=== PATIENT | male | born 1930 | race African-American/Black ===

== ENCOUNTER 2017-06-03 00:01 | Inpatient (IN) | payer MEDICARE, OTHER ==
[~2017-06-03] VITALS: Ht 165.1 cm; Wt 73.0 kg
[2017-06-03] VITALS (7 sets, daily range): BP systolic 119–140; BP diastolic 57–73
[~2017-06-03 00:01] MED LIST: ATOR40TA70 PO; CALC667C4 PO; CLOP75TA2 PO; FEBU40TA PO; FERR-63 PO; TERA5CAP4 PO
[2017-06-03] MEDS ORDERED: ASPIRIN 81MG TABLET PO ONE (00:30)
[2017-06-03] MEDS: NITROGLYCERIN 0.4MG TABLET SL SL PRN ×2 (00:46→00:52)
[2017-06-03 00:47] LABS: INR 1.1; PROTHROMBIN TIME 11.5 sec
[2017-06-03 00:53] LABS: CARBON DIOXIDE 30 mEq/L (21-32); CHLORIDE 102 mEq/L (98-107); TROPONIN I 0.34 ng/mL (0.00-0.04)
[2017-06-03 00:55] LABS: BASOPHILS % 0.6 % (0.0-2.0); EOSINOPHILS % 0.9 % (0.0-5.0); HEMATOCRIT. 30.8 % (42.0-52.0); HEMOGLOBIN. 10.4 g/dL (14.0-18.0); LYMPHOCYTES % 22.9 % (20.0-50.0); MEAN CORPUSCULAR HEMOGLOBIN 32.7 pg (28.0-32.0); MEAN CORPUSCULAR VOLUME 97.2 fL (80.0-94.0); MEAN PLATELET VOLUME 9.9 fl (7.4-10.4); MONOCYTES % 10.9 % (2.0-8.0); NEUTROPHILS % 64.7 % (40.0-76.0); PLATELET 134 x1000/uL (130-400); RED BLOOD CELL COUNT 3.17 mill/uL (4.7-6.1); RED CELL DISTRIBUTION WIDTH 15.5 % (11.6-14.6)
[2017-06-03] MEDS ORDERED: MORPHINE SULFATE 4 MG/ML CPJ (NOT FOR IM USE) IV ONE (02:15)
[2017-06-03] MEDS ORDERED: ACETAMINOPHEN 325MG TABLET PO PRN (09:45)
[2017-06-03] MEDS ORDERED: HYDROCODONE/ACETAMINOPHEN 5/325MG TABLET PO PRN (09:45)
[2017-06-03] MEDS ORDERED: DIPHENHYDRAMINE 50MG/ML VIAL IV PRN (09:45)
[2017-06-03] MEDS ORDERED: ACETAMINOPHEN 650MG SUPP PR PRN (09:45)
[2017-06-03] MEDS ORDERED: GUAIFENESIN 200MG/10ML SUGAR FREE UDC PO PRN (09:45)
[2017-06-03] MEDS ORDERED: DOCUSATE SODIUM 100MG CAPSULE PO PRN (09:45)
[2017-06-03] MEDS ORDERED: NA PHOS,M-B/NA PHOS,DI-BA ENEMA 118ML PR PRN (09:45)
[2017-06-03] MEDS ORDERED: IPRATROPIUM/ALBUTEROL 0.5-3(2.5)MG/3ML NEB INH PRN (09:45)
[2017-06-03] MEDS ORDERED: ACETAMINOPHEN 650MG/20.3ML UDC GT PRN (09:45)
[2017-06-03] MEDS ORDERED: CLONIDINE 0.1MG TABLET PO PRN (09:45)
[2017-06-03] MEDS ORDERED: MAGNESIUM/ALUMINUM HYDROXIDE/SIMETHICONE 30ML UDC PO PRN (09:45)
[2017-06-03] MEDS ORDERED: ONDANSETRON HCL 4MG/2ML VIAL IV PRN (09:45)
[2017-06-03 10:26] LABS: BASOPHILS % 0.5 % (0.0-2.0); EOSINOPHILS % 1.5 % (0.0-5.0); HEMATOCRIT. 30.5 % (42.0-52.0); HEMOGLOBIN. 10.3 g/dL (14.0-18.0); LYMPHOCYTES % 26.5 % (20.0-50.0); MEAN CORPUSCULAR VOLUME 97.5 fL (80.0-94.0); MEAN PLATELET VOLUME 9.6 fl (7.4-10.4); MONOCYTES % 11.9 % (2.0-8.0); NEUTROPHILS % 59.6 % (40.0-76.0); PLATELET 130 x1000/uL (130-400); RED BLOOD CELL COUNT 3.13 mill/uL (4.7-6.1); RED CELL DISTRIBUTION WIDTH 15.2 % (11.6-14.6)
[2017-06-03 10:42] LABS: CARBON DIOXIDE 29 mEq/L (21-32); CHLORIDE 103 mEq/L (98-107)
[2017-06-03 10:46] LABS: HDL CHOLESTEROL 52 mg/dL (40-59); LDL CHOLESTEROL 96 mg/dL (5-100)
[2017-06-03] MEDS ORDERED: ATORVASTATIN CALCIUM 40MG TABLET PO SCH (12:00)
[2017-06-03] MEDS: ASPIRIN 325MG EC TABLET PO SCH (12:11)
[2017-06-03] MEDS ORDERED: HEPARIN 25,000 UNITS PREMIX 500 ML IV SCH (12:30)
[2017-06-03] MEDS: CLOPIDOGREL 75MG TABLET PO SCH (12:30)
[2017-06-03] MEDS ORDERED: HEPARIN 5000 UNITS/ML VIAL IV ONE (12:30)
[2017-06-03] MEDS: CALCIUM ACETATE 667MG CAPSULE PO SCH ×2 (12:36→17:01)
[2017-06-03] MEDS ORDERED: CINA30 PO (13:04)
[2017-06-03] MEDS: NITROGLYCERIN OINT 1GM/INCH UDPKT TD SCH ×3 (14:49→20:07)
[2017-06-03] MEDS: SODIUM CHLORIDE 0.9% INJ 3ML FLUSH IVF SCH ×2 (14:49→21:20)
[2017-06-03 15:57] LABS: *AMPHETAMINES SCREEN URINE NEGATIVE (NEGATIVE); *BARBITURATES SCREEN URINE NEGATIVE (NEGATIVE); *BENZODIAZEPINES SCREEN URINE NEGATIVE (NEGATIVE); *COCAINE SCREEN URINE NEGATIVE (NEGATIVE); CANNABINOID URINE SCREEN NEGATIVE (NEGATIVE); METHADONE URINE SCREEN NEGATIVE (NEGATIVE); OPIATES URINE SCREEN PRESUMTIVE POSITIVE (NEGATIVE); PHENCYCLIDINE URINE SCREEN NEGATIVE (NEGATIVE)
[2017-06-03] MEDS ORDERED: HEPARIN BOLUS PRN aPTT 30-44 IV (16:00)
[2017-06-03] MEDS ORDERED: HEPARIN 60 UNITS/KG BOLUS IV NR (16:00)
[2017-06-03] MEDS ORDERED: HEPARIN BOLUS PRN aPTT <30 IV (16:00)
[2017-06-03 16:35] LABS: TROPONIN I 4.7 ng/mL (0.00-0.04)
[2017-06-03] MEDS: HEPARIN 25,000 UNITS PREMIX 500 ML IV SCH (16:45)
[2017-06-03] MEDS: TERAZOSIN HCL 5MG CAPSULE PO SCH (20:07)
[2017-06-03] MEDS: ATORVASTATIN CALCIUM 40MG TABLET PO SCH (20:07)
[2017-06-03] MEDS: METOPROLOL TARTRATE 25MG TABLET PO SCH (20:07)
[2017-06-04] VITALS (13 sets, daily range): BP systolic 98–166; BP diastolic 52–93
[2017-06-04] MEDS: NITROGLYCERIN OINT 1GM/INCH UDPKT TD SCH ×6 (00:23→20:53)
[2017-06-04] MEDS: HEPARIN 25,000 UNITS PREMIX 500 ML IV SCH (03:41)
[2017-06-04] MEDS: SODIUM CHLORIDE 0.9% INJ 3ML FLUSH IVF SCH ×3 (05:59→21:32)
[2017-06-04 06:45] LABS: BASOPHILS % 0.4 % (0.0-2.0); EOSINOPHILS % 1.5 % (0.0-5.0); HEMOGLOBIN. 9.8 g/dL (14.0-18.0); LYMPHOCYTES % 18.6 % (20.0-50.0); MEAN CORPUSCULAR VOLUME 97.1 fL (80.0-94.0); MEAN PLATELET VOLUME 10.1 fl (7.4-10.4); NEUTROPHILS % 66.5 % (40.0-76.0); PLATELET 123 x1000/uL (130-400); RED BLOOD CELL COUNT 2.98 mill/uL (4.7-6.1); RED CELL DISTRIBUTION WIDTH 15.2 % (11.6-14.6)
[2017-06-04 07:13] LABS: CARBON DIOXIDE 26 mEq/L (21-32); CHLORIDE 101 mEq/L (98-107); HDL CHOLESTEROL 50 mg/dL (40-59); LDL CHOLESTEROL 88 mg/dL (5-100)
[2017-06-04] MEDS: CALCIUM ACETATE 667MG CAPSULE PO SCH ×3 (07:20→16:37)
[2017-06-04] MEDS: METOPROLOL TARTRATE 25MG TABLET PO SCH ×2 (08:57→21:00)
[2017-06-04] MEDS: ASPIRIN 325MG EC TABLET PO SCH (09:16)
[2017-06-04] MEDS: CLOPIDOGREL 75MG TABLET PO SCH (09:16)
[2017-06-04 10:05] LABS: CREATINE KINASE MB FRACTION 18.2 ng/mL (0.5-3.6)
[2017-06-04] MEDS ORDERED: MIDAZOLAM HCL 2 MG/2 ML VIAL ONE (12:12)
[2017-06-04] MEDS ORDERED: FENTANYL CITRATE/PF 50MCG/ML 2ML VIAL ONE (12:12)
[2017-06-04] MEDS ORDERED: IODIXANOL 320MG/ML 100 ML BOTTLE IV ONE (12:13)
[2017-06-04] MEDS ORDERED: LIDOCAINE HCL 1% 20ML VIAL (Pyxis) INJ ONE (12:13)
[2017-06-04] MEDS ORDERED: HEPARIN SODIUM 1,000 UNIT/1ML VIAL IV ONE ×2 (13:06→13:23)
[2017-06-04] MEDS ORDERED: NITROGLYCERIN 50MCG/ML 10ML VIAL (CATH LAB) IV ONE (13:55)
[2017-06-04] MEDS ORDERED: NICARDIPINE 100MCG/ML 10ML VIAL (CATH LAB) IV ONE (13:55)
[2017-06-04] MEDS ORDERED: ENOXAPARIN 80MG/0.8ML SYR SUBCUT NR (18:00)
[2017-06-04] MEDS: ATORVASTATIN CALCIUM 40MG TABLET PO SCH (20:51)
[2017-06-04] MEDS: TERAZOSIN HCL 5MG CAPSULE PO SCH (20:52)
[2017-06-04] MEDS ORDERED: EPOETIN ALFA 10000UNITS/ML VIAL SUBCUT SCH (21:00)
[2017-06-05] VITALS (16 sets, daily range): BP systolic 117–172; BP diastolic 31–79
[2017-06-05] MEDS: NITROGLYCERIN OINT 1GM/INCH UDPKT TD SCH ×6 (00:42→20:57)
[2017-06-05] MEDS: SODIUM CHLORIDE 0.9% INJ 3ML FLUSH IVF SCH ×3 (05:07→22:00)
[2017-06-05 06:32] LABS: BASOPHILS % 0.5 % (0.0-2.0); EOSINOPHILS % 1.8 % (0.0-5.0); HEMATOCRIT. 27.2 % (42.0-52.0); HEMOGLOBIN. 9.3 g/dL (14.0-18.0); LYMPHOCYTES % 24.4 % (20.0-50.0); MEAN CORPUSCULAR HEMOGLOBIN 32.9 pg (28.0-32.0); MEAN CORPUSCULAR VOLUME 96.3 fL (80.0-94.0); MEAN PLATELET VOLUME 9.9 fl (7.4-10.4); MONOCYTES % 13.8 % (2.0-8.0); NEUTROPHILS % 59.5 % (40.0-76.0); PLATELET 120 x1000/uL (130-400); RED BLOOD CELL COUNT 2.82 mill/uL (4.7-6.1); RED CELL DISTRIBUTION WIDTH 14.8 % (11.6-14.6)
[2017-06-05 06:43] LABS: CARBON DIOXIDE 29 mEq/L (21-32); CHLORIDE 100 mEq/L (98-107); CREATINE KINASE 266 IU/L (39-308); CREATINE KINASE MB FRACTION 6.7 ng/mL (0.5-3.6)
[2017-06-05] MEDS ORDERED: ASPIRIN/SOD BICARB/CITRIC ACID 324MG TAB EFF ONE (07:15)
[2017-06-05] MEDS: CALCIUM ACETATE 667MG CAPSULE PO SCH ×2 (07:20→18:04)
[2017-06-05] MEDS ORDERED: FENTANYL CITRATE/PF 50MCG/ML 2ML VIAL ONE (07:23)
[2017-06-05] MEDS ORDERED: LIDOCAINE HCL 1% 20ML VIAL (Pyxis) INJ ONE (07:23)
[2017-06-05] MEDS ORDERED: MIDAZOLAM HCL 2 MG/2 ML VIAL ONE (07:23)
[2017-06-05] MEDS ORDERED: IOVERSOL 240MG/ML 100ML BOTTLE IV ONE (07:24)
[2017-06-05] MEDS ORDERED: IODIXANOL 320MG/ML 100 ML BOTTLE IV ONE ×2 (07:24→08:54)
[2017-06-05] MEDS ORDERED: IODIXANOL 320MG/ML 200ML BOTTLE ONE (07:25)
[2017-06-05] MEDS ORDERED: HEPARIN SODIUM 1,000 UNIT/1ML VIAL IV ONE (08:02)
[2017-06-05] MEDS ORDERED: CLOPIDOGREL 75MG TABLET ONE (08:44)
[2017-06-05] MEDS ORDERED: ATROPINE SULFATE 0.1MG/ML 10ML DISP.SYRIN ONE (09:00)
[2017-06-05] MEDS ORDERED: ACETAMINOPHEN 325MG TABLET PO PRN (09:45)
[2017-06-05] MEDS ORDERED: ATROPINE SULFATE 1MG/10ML SYR IV PRN (09:45)
[2017-06-05] MEDS ORDERED: CLOPIDOGREL 75MG TABLET PO SCH (09:45)
[2017-06-05] MEDS: ASPIRIN 325MG EC TABLET PO SCH (10:04)
[2017-06-05] MEDS: METOPROLOL TARTRATE 25MG TABLET PO SCH ×2 (11:14→21:41)
[2017-06-05] MEDS: ATORVASTATIN CALCIUM 40MG TABLET PO SCH (21:42)
[2017-06-05] MEDS: TERAZOSIN HCL 5MG CAPSULE PO SCH (21:42)
[2017-06-06] VITALS (7 sets, daily range): BP systolic 129–145; BP diastolic 52–66
[2017-06-06] MEDS: NITROGLYCERIN OINT 1GM/INCH UDPKT TD SCH ×3 (03:47→09:07)
[2017-06-06] MEDS: SODIUM CHLORIDE 0.9% INJ 3ML FLUSH IVF SCH (05:06)
[2017-06-06 06:54] LABS: HEMATOCRIT. 27.8 % (42.0-52.0); HEMOGLOBIN. 9.5 g/dL (14.0-18.0); MEAN CORPUSCULAR HEMOGLOBIN 32.9 pg (28.0-32.0); MEAN CORPUSCULAR VOLUME 96.9 fL (80.0-94.0); MEAN PLATELET VOLUME 10.2 fl (7.4-10.4); PLATELET 122 x1000/uL (130-400); RED BLOOD CELL COUNT 2.87 mill/uL (4.7-6.1); RED CELL DISTRIBUTION WIDTH 14.7 % (11.6-14.6)
[2017-06-06] MEDS ORDERED: ASPI-867 PO (07:41)
[2017-06-06 08:47] LABS: PLATELET ESTIMATE SLIGHTLY DECREASED
[2017-06-06] MEDS ORDERED: CLOPIDOGREL 75MG TABLET PO SCH (09:00)
[2017-06-06] MEDS: CALCIUM ACETATE 667MG CAPSULE PO SCH (09:06)
[2017-06-06] MEDS: ASPIRIN 325MG EC TABLET PO SCH (09:06)
[2017-06-06] MEDS: METOPROLOL TARTRATE 25MG TABLET PO SCH (09:07)
== END 2017-06-06 12:00 | disposition home or self-care (01) | DRG 246 ==
LOC: ER 00:01 → 3WST 02:10 → EDBEDREQTM 04:02 → EDBEDREQSVC 10:58 → EDBEDREQ 11:02 → ENRESERV 11:09
PROVIDERS: ADMIT Family Medicine; ATTEND Family Medicine
PROC: 5A1D60Z (ICD-10-PCS; 2017-06-04)
PROC: B31H1ZZ Fluoroscopy of Right Upper Extremity Arteries using Low Osmolar Contrast (ICD-10-PCS; 2017-06-04)
PROC: B2111ZZ Fluoroscopy of Multiple Coronary Arteries using Low Osmolar Contrast (ICD-10-PCS; 2017-06-04)
PROC: B2151ZZ Fluoroscopy of Left Heart using Low Osmolar Contrast (ICD-10-PCS; 2017-06-04)
PROC: 027034Z Dilation of Coronary Artery, One Artery with Drug-eluting Intraluminal Device, Percutaneous Approach (ICD-10-PCS; principal; 2017-06-05)
PROC: B41F1ZZ Fluoroscopy of Right Lower Extremity Arteries using Low Osmolar Contrast (ICD-10-PCS; 2017-06-05)
DX: T82.855A Stenosis of coronary artery stent, initial encounter (principal); I21.4 Non-ST elevation (NSTEMI) myocardial infarction; N18.6 End stage renal disease; I47.1 Supraventricular tachycardia; I12.0 Hypertensive chronic kidney disease with stage 5 chronic kidney disease or end stage renal disease; I25.10 Atherosclerotic heart disease of native coronary artery without angina pectoris; D50.9 Iron deficiency anemia, unspecified; E11.22 Type 2 diabetes mellitus with diabetic chronic kidney disease; E78.00 Pure hypercholesterolemia, unspecified; E78.5 Hyperlipidemia, unspecified; Y83.9 Surgical procedure, unspecified as the cause of abnormal reaction of the patient, or of later complication, without mention of misadventure at the time of the procedure; Z96.649 Presence of unspecified artificial hip joint; I44.0 Atrioventricular block, first degree; I51.7 Cardiomegaly; N40.0 Benign prostatic hyperplasia without lower urinary tract symptoms; Z86.73 Personal history of transient ischemic attack (TIA), and cerebral infarction without residual deficits; Y92.89 Other specified places as the place of occurrence of the external cause; Z87.891 Personal history of nicotine dependence; Z88.0 Allergy status to penicillin; Z99.2 Dependence on renal dialysis; Z79.899 Other long term (current) drug therapy
CPT/HCPCS: 36415; 71010; 80048; 80053; 80061; 80305; 82550; 82553; 83036; 83735; 83880; 84443; 84484; 85025; 85347; 85610; 85730; 86850; 86900; 92928; 92929; 93005; 93306; 93454; 93458; 96374; 99285; C1725; C1769; C1887; C1893; J0461; J0885; J1644; J1650; J2250; J2270; J3010; J3490; J7030; L1830; Q9967